=== PATIENT | female | born 1980 | race Two or more races ===

== ENCOUNTER 2025-06-11 09:32 | Emergency (ER) | payer BC, OTHER ==
[~2025-06-11] VITALS: Ht 152.4 cm; Wt 136.0 kg
[2025-06-11] MEDS ORDERED: PRED20TA2 PO (11:44)
[2025-06-11] MEDS ORDERED: FAMO20TA10 PO (11:44)
[2025-06-11] MEDS ORDERED: DIPH25CA51 PO (11:44)
--- NOTE | 2025-06-11 11:44 | ED.PDOC ---
HPI Allergic reaction HPI Comments 44-year-old female presents to the ER with No prior MHx associated with a chief complaint of an allergic reaction. Patient reports with the full body hives and itchiness since 7:00 p.m. last night. Patient notes on not trying anything new when symptoms occurred. Denies that the rash is painful, just itchy Patient denies any fever, cough, difficulty swallowing, or shortness of breath Denies fever chills night sweats nausea vomiting diarrhea Denies persistent loss of appetite nor unintentional weight loss over the past 3 months Denies history of STI Denies cough and cold-like symptoms Denies recent travel Denies sick contact with similar rash Denies new topical creams/lotions/shampoos/detergents Denies noticing any insects Denies bruising bleeding anywhere Denies chronic skin issues or family history of skin issues Chief Complaint: Allergic Reaction Time Seen by MD: 11:30 Reviewed Notes: Nurses Notes, Medications, Allergies Allergies: Coded Allergies: NO KNOWN ALLERGIES (Unverified , 06/11/25) Home Meds Active Scripts Diphenhydramine Hcl (BENADRYL CAPSULE) 25 Mg Cp, 25 MG PO Q6HP PRN for 10 Days, #40 CAP 0 Refills Prov:WILI HERNANDEZ NP 06/11/25 Famotidine (PEPCID TABLET) 20 Mg Tb, 1 TAB PO BID for 5 Days, #10 TAB 0 Refills Prov:WILI HERNANDEZ NP 06/11/25 Prednisone (Prednisone) 20 Mg Tab, 60 MG PO DAILY for 5 Days, #15 TAB 0 Refills Prov:WILI HERNANDEZ NP 06/11/25 Information Source: Patient Mode of Arrival: Ambulatory Severity: Moderate Rash: Moderate SOB: None Difficulty swallowing: None Pruritus: None Timing: Hours Duration: Since onset, Hours Prehospital treatment: None Location: Other (Full body) Exposed to: Unknown Developed: Rash History of: None Modyifying Factors: None Associated Sign and Symptoms: None Past Medical History PAST MEDICAL HISTORY: Denies Surgical History: Denies all surgeries PIZZA DRIVER History: No Pertinent PIZZA DRIVER History Family History Family History: Reviewed,noncontributory to illness, Unknown Social History Smoker: Non-Smoker Alcohol: Denies ETOH Use Drugs: Denies Drug Use Lives In: Home Constitutional: denies: chills, diaphoresis, fatigue, fever, malaise, sweats, weakness, others EENTM: denies: blurred vision, double vision, ear bleeding, ear discharge, ear drainage, ear pain, ear ringing, eye pain, eye redness, hearing loss, mouth pain, mouth swelling, nasal discharge, nose bleeding, nose congestion, nose pain, photophobia, tearing, throat pain, throat swelling, voice changes, others Respiratory: denies: cough, hemoptysis, orthopnea, SOB at rest, shortness of breath, SOB with excertion, stridor, wheezing, others Cardiovascular: denies: chest pain, dizzy spells, diaphoresis, Dyspnea on exertion, edema, irregular heart beat, left arm pain, lightheadedness, palpitations, PND, syncope, others Gastrointestinal: denies: abdomen distended, abdominal pain, blood streaked bowels, constipated, diarrhea, dysphagia, difficulty swallowing, hematemesis, melena, nausea, poor appetite, poor fluid intake, rectal bleeding, rectal pain, vomiting, others Genitourinary: denies: abnormal vagina bleeding, burning, dyspareunia, dysuria, flank pain, frequency, hematuria, incontinence, pain, , vagina discharge, urgency, others Neurological: denies: dizziness, fainting, headache, left sided numbness, left sided weakness, numbness, paresthesia, pre-existing deficit, right sided numbness, right sided weakness, seizure, speech problems, tingling, tremors, weakness, others Musculoskeletal: denies: back pain, gout, joint pain, joint swelling, muscle pain, muscle stiffness, neck pain, others Integumetry: reports: others (Scattered hives on the torso and lower extremity); denies: bruises, change in color, change in hair/nails, dryness, laceration, lesions, lumps, rash, wounds Allergic/Immunocompromised: denies: Difficulty Healing, Frequent Infections, Hives, Itching, others Hematologic/Lymphatic: denies: anemia, blood clots, easy bleeding, easy bruising, swollen glands, others Endocrine: denies: excessive hunger, excessive sweating, excessive thirst, excessive urination, flushing, intolerance to cold, intolerance to heat, unexplained weight gain, unexplained weight loss, others Psychiatric: denies: anxiety, bipolar disorder, depression, hopeless, panic disorder, schizophrenia, sleepless, suicidal, others All Other Systems: Reviewed and Negative Physical Exam General Appearance: No Apparent Distress, Normal HEENT: Normal ENT Inspection, Pharynx Normal, TMs Normal Neck: Full Range of Motion, Non-Tender, Normal, Normal Inspection Respiratory: Chest Non-Tender, Lungs Clear, No Accessory Muscle Use, No Respiratory Distress, Normal Breath Sounds Cardiovascular: No Edema, No JVD, No Murmur, No Gallop, Normal Peripheral Pulses, Regular Rate/Rhythm Breast Exam: Deferred Gastrointestinal: No Organomegaly, Non Tender, No Pulsatile Mass, Normal Bowel Sounds, Soft Genitalia: Deferred Pelvic: Deferred Rectal: Deferred Extremities: No calf tenderness, Normal capillary refill, Normal inspection, Normal range of motion, Non-tender, No pedal edema Musculoskeletal : Apperance: Normal Neurologic: Alert, production stage manager II-XII nml as Tested, No Motor Deficits, Normal Affect, Normal Mood, No Sensory Deficits Cerebellar Function: Normal Reflexes: Normal Skin: Other (Scattered hives on the torso and lower extremities) Lymphatic: No Adenopathy Was a procedure done? Was a procedure done?: No Differential diagnosis (all) Differential Diagnosis: Contact Dermatitis, Shock, Urticaria, Other X-Ray, Labs, Meds, VS Vital Signs Date Time Temp Pulse Resp B/P (MAP) Pulse Ox O2 Delivery O2 Flow Rate FiO2 06/11/25 14:15 97.6 95 20 140/73 (95) 97 97.6 06/11/25 09:33 97.6 113 16 127/56 95 97.6 Current Medications Medications (Trade) Dose Ordered Sig/Lyla Route Start Time Stop Time Status Last Admin Famotidine (Pepcid Tablet) 40 mg ONCE ONCE PO 06/11/25 11:45 06/11/25 11:46 DC 06/11/25 14:08 Diphenhydramine HCl (Benadryl Capsule) 50 mg ONCE ONCE PO 06/11/25 11:45 06/11/25 11:46 DC 06/11/25 14:08 Methylprednisolone Sodium Succinate (Solu Medrol) 125 mg ONCE ONCE IM 06/11/25 11:45 06/11/25 11:46 DC 06/11/25 14:06 X-Ray, Labs, Meds, VS Comment 44-year-old female presents to the ER with No prior MHx associated with a chief complaint of an allergic reaction Pt presents ED for an allergic reaction. Solu-Medrol and Pepcid administered in ED for treatment. Patient reports significant improvement in symptoms following treatment. Patient was monitored in the ED for an extended amount of time. The additional treatment was prescribed Follow-up with PCP in 1 to 2 days. Patient needs lead portfolio manager referral for further testing Return to ED if symptoms persist, or sooner if symptoms worsen Patient is stable for discharge at this time. External notes reviewed. Test results and diagnostic imaging interpreted. All diagnostic findings, discharge care, education and instructions provided Follow-up with PCP in 2 to 3 days Patient verbalized understanding and agreed to treatment plan Vital signs stable, afebrile, no acute distress noted Patient ambulatory with strong steady gait Advised to return precautions for any new or worsening symptoms, return to ER immediately for re-evaluation Patient is aware that the purpose of this visit was for an acute medical emergency requiring emergent stabilization. Chronic conditions, including malignancies have not been ruled out. Patient is instructed to follow up with PCP as directed and discharge instructions for continued care and workup. If unable to arrange follow-up, patient is to return to the emergency department for reassessment. Patient (parent or legal guardian if applicable) was given verbal and written discharge instructions and acknowledges understanding. Consideration of admission (observation or admission): I considered escalation of care to admission for this patient, however given the reassuring workup, the patient is safe for outpatient management. Discussion with the Radiology: No Tests considered but not performed: Prescription medication considered but not given: 12 lead EKG interpretation: Time of 1ST Reevaluation: 11:00 Reevaluation 1ST: Improved Patient Education/Counseling: Diagnosis, Treatment, Prognosis Family Education/Counseling: No Family Present SEPSIS Sepsis Screen Date sepsis recognized/suspect: Jun 11, 2025 Time Sepsis recognized/suspect: 934 Recent Procedure: No On Antibiotic Therapy: No Respiratory Rate >20: No Heart Rate >90: Yes Temp<36 C (96.8 F) or >38.3 C: No SBP <90 or MAP <65 mmHG: No New Acute Mental Status Change: No Is the patient on CPAP, BIPAP,: No Vital Signs Date Time Temp Pulse Resp B/P (MAP) Pulse Ox O2 Delivery O2 Flow Rate FiO2 06/11/25 14:15 97.6 95 20 140/73 (95) 97 97.6 06/11/25 09:33 97.6 113 16 127/56 95 97.6 Departure 1 Departure Time of Disposition: 11:35 Impression: Primary Impression: Allergic reaction Qualified Codes: T78.40XA - Allergy, unspecified, initial encounter Disposition: HOME / SELF CARE / HOMELESS Condition: Fair e-Prescriptions Diphenhydramine Hcl (BENADRYL CAPSULE) 25 Mg Cp 25 MG PO Q6HP PRN for 10 Days, #40 CAP 0 Refills Prov: WILI HERNANDEZ NP 06/11/25 Famotidine (PEPCID TABLET) 20 Mg Tb 1 TAB PO BID for 5 Days, #10 TAB 0 Refills Prov: WILI HERNANDEZ NP 06/11/25 Prednisone (Prednisone) 20 Mg Tab 60 MG PO DAILY for 5 Days, #15 TAB 0 Refills Prov: WILI HERNANDEZ NP 06/11/25 Critical Care Note Critical Care Time?: No Stability Stability form required: No Heart Score Heart Score: Heart Score Response (Comments) Value History N/A 0 EKG N/A 0 Age N/A 0 Risk Factors N/A 0 Troponin N/A 0 Total 0 I personally scribed for WILI HERNANDEZ NP ([email or web address]) on 06/11/25 at 11:57. Electronically submitted by Ismael Avila ([email or web address]). WILI HERNANDEZ NP Jun 11, 2025 11:44
[2025-06-11] MEDS: methylPREDNISolone SOD SUCC 125 MG/2 ML VL IM ONE (14:06)
[2025-06-11] MEDS: FAMOTIDINE 20 MG TAB PO ONE (14:08)
[2025-06-11] MEDS: diphenhdrAMINE HCL 25 MG CAP PO ONE (14:08)
[2025-06-11 14:15] VITALS: BP 140/73; PULSE 95; RESP 20; TEMP 97.6; O2SAT 97
== END 2025-06-11 14:15 | disposition home or self-care (01) ==
LOC: ER 09:32
DX: L50.9 Urticaria, unspecified (principal); T78.40XA Allergy, unspecified, initial encounter; Z79.899 Other long term (current) drug therapy; X58.XXXA Exposure to other specified factors, initial encounter
CPT/HCPCS: 96372; 99283; J2919